=== PATIENT | male | born 1985 | race Two or more races ===

== ENCOUNTER 2023-04-24 17:31 | Emergency (ER) | payer SELFPAY ==
[~2023-04-24] VITALS: Ht 172.7 cm; Wt 81.8 kg
[2023-04-24] MEDS ORDERED: IBU600T PO (21:41)
[2023-04-24] MEDS ORDERED: CYCL-839 PO (21:41)
[2023-04-24] MEDS ORDERED: ONDANSETRON ODT 4 MG TAB PO ONE (21:45)
[2023-04-24] MEDS ORDERED: DexAMETHasone SOD PHOS 10MG/1ML VIAL INJ IM ONE (21:45)
[2023-04-24] MEDS ORDERED: MORPHINE SULFATE INJ 2 MG/ml SYRG IM ONE (21:45)
[2023-04-24] MEDS ORDERED: KETOROLAC TROMETH 60MG/2ML VIAL IM ONE (21:45)
[2023-04-24 22:36] VITALS: BP 133/83
== END 2023-04-24 22:56 | disposition home or self-care (01) ==
LOC: EDBD 17:31 → ER 17:31
DX: G89.29 Other chronic pain (principal); M54.50 Low back pain, unspecified; M54.16 Radiculopathy, lumbar region; M51.36 Other intervertebral disc degeneration, lumbar region; Z79.1 Long term (current) use of non-steroidal anti-inflammatories (NSAID); Z79.899 Other long term (current) drug therapy; Z91.048 Other nonmedicinal substance allergy status
CPT/HCPCS: 72131; 93970; 96372; 99285; J1100; J1885; Q0162